=== PATIENT | male | born 1955 | race Caucasian/White ===

== ENCOUNTER 2023-02-12 18:00 | Observation (INO) ==
[2023-02-12] MEDS ORDERED: SODIUM CHLORIDE 0.9% 500 ML IV STA (18:08)
[2023-02-12] MEDS ORDERED: SODIUM CHLORIDE 0.9% 1000ML 1,000 ML IV STA (18:08)
[2023-02-12] MEDS ORDERED: ONDANSETRON INJ 2 MG/ML 2 ML VIAL IV STA (18:32)
[2023-02-12] MEDS ORDERED: HYDROmorphone INJ 0.5 MG/0.5 ML SYR IV PRN (18:32)
--- NOTE | 2023-02-12 18:44 | Emergency Department Note ---
Impression & Plan Nausea & vomiting, Abdominal pain, acute, right upper quadrant, Acute UTI (urinary tract infection) ED Provider Note INFORMANT: Patient ED PROVIDER(S): Kirill Paris MD CHIEF COMPLAINT: Nausea and vomiting PLAN: Disposition: Admitted Condition: Good Outpatient prescription management: none Referral: None MEDICAL DECISION MAKING: Patient presented because of nausea and vomiting. He also noted exacerbation of his left lower back pain. I did obtain records from his visit to [facility]. Patient's MR showed postsurgical changes and expected findings without evidence of discitis or osteomyelitis. Patient had a leukocytosis on their labs and there. He did receive Dilaudid and Zofran. Patient was reevaluated here and he was found to be dehydrated on his chemistry panel. Patient's urinalysis was concerning for infection. Patient received Dilaudid a nd Zofran. He was also hydrated with normal saline. On reassessment he was feeling better. Patient's CT imaging did not reveal any acute intra-abdominal findings except that his bladder appeared consistent with cystitis. This would fit with his urinalysis. Patient was given a dose of IV Rocephin. This could explain the patient's leukocytosis in addition to his vomiting. I discussed admission for further management with the patient and he was in agreement. Consultation was made with Dr. Pop Winters, [facility] hospitalist service. Patient was evaluated in ER admitted for further management Discussed with manager secondary After review of the information above and other included data, I feel the patient requires admission. Triage Nursing notes reviewed and agree them. Vital Signs: reviewed and remarkable for no significant abnormalities Prior /Outside records reviewed: Visit records from last ER visit to outside facility [facility] reviewed Differential diagnosis: Etiologies such as gastroenteritis, food borne illness, infections, ap pendicitis, diverticulitis, inflammatory bowel disease, GI bleed, biliary pathology, exacerbation of chronic low back pain, herniated disc, musculoskeletal, as well as others were entertained. Diagnostics, as interpreted by me: ECG: Twelve-lead ECG normal sinus rhythm at 74 bpm. No Q waves present. No ST elevation. Cardiac Monitoring: Cardiac monitoring ordered by me: The patient was placed on continuous cardiac monitoring and observed. It revealed a normal sinus rhythm at 68 beats per minute without ectopy or evidence of dysrhythmia. Medical decision rules: none Imaging studies: CT scan as noted above. Cystitis. I refer you to the EMR for further details. HPI: The patient is a 68year old male who presents to the Emergency Room with complaints of nausea and vomiting. This started this week and is worsening today.. The patient also notes the following associated symptoms, left low back pain and pain radiating into the left leg, right shoulder pain. Patient also notes right upper quadrant abdominal pain. Patient has a history of lumbar back surgery done at [facility]. He notes his pain in the left hip is similar to his sciatica back pain. Patient notes prior cholecystectomy. He was at [facility] last night and had testing done. He states he had blood work and MRI. The blood work did reveal a leukocytosis of 15.6. Patient was treated with Dilaudid and Zofran. He was discharged with a diagnosis of chronic back pain. Patient is unsure of MRI results. Notes no imaging of his abdomen. The patient has found no relieving factors. Current pain is rated as 10/10. Pt denies LOC, headache, fevers, chills, diaphoresis, visual changes, neck pain, chest pain, breathing difficulties, melena, hematochezia, urinary symptoms, no bowel or bladder dysfunction, numbness, weakness, lymphadenopathy, rash, or other complaints. PAST MEDICAL HISTORY: See Below, chronic low back pain PAST SURGICAL HISTORY: See Below, cholecystectomy, lumbar fusion SOCIAL HISTORY: See Below, smoker HOME MEDICATIONS: See Below ALLERGIES: See Below VITALS: See Below PHYSICAL EXAMINATION: GENERAL: Awake, alert, uncomfortable-appearing, in moderate distress HENT: Normocephalic, atraumatic. Oropharynx unremarkable. EYES: Normal conjunctiva. Sclera non-icteric. NECK: Inspection normal. Non-tender. Supple. No nuchal rigidity. FROM. No masses. RESPIRATORY: Clear to auscultation. No wheezes. No rales. Normal respiratory effort. CARDIAC: Normal rate. Normal rhythm. No murmurs. No rubs. Extremities warm and well perfused. Pulses equal. No JVD. GI: Soft, non-distended. Right upper quadrant tenderness to palpation. No rebound or guarding. No masses. RECTAL: Deferred. MUSCULOSKELETAL: Atraumatic. Chest examination reveals no tenderness. The back is symmetrical on inspection without obvious abnormality. There is no CVA tenderness to palpation. Tenderness in the left lumbar region left sciatic notch. No joint edema. LOWER EXTREMITIES: Calves are equal size bilaterally and non-tender. No edema. No discoloration. NEURO: Normal sensorium. No sensory or motor deficits noted. SKIN: No rash or jaundice noted. Past Med/Surg History Social History Smoking Status: Current every day smoker Tobacco Type: Cigarettes Feels Safe at Home: Yes Allergies Allergies Allergy/AdvReac Type Severity Reaction Status Date / Time ragweed pollen Allergy Mild Congested Verified 02/12/23 22:07 Home Meds Home Medications Medication Instructions Recorded Confirmed aspirin 325 mg tablet 325 mg PO Q6H PRN Pain 02/12/23 02/12/23 glimepiride 2 mg tablet 2 mg PO DAILY 02/12/23 02/12/23 semaglutide 2 mg/dose (8 mg/3 mL) 1 mg subcut WK 02/12/23 02/12/23 subcutaneous pen injector (Ozempic) Results & Data (ED) Vital Signs Vital Signs - 24 hr 02/12/23 18:09 02/12/23 18:44 02/12/23 18:44 Temperature 36.7 C Temperature Source Oral Pulse Rate 79 76 Pulse Rate [Right Finger] 82 Pulse Rhythm Regular Respiratory Rate 19 20 20 Respiratory Effort / Characteristics Non-Labored Spontaneous Non-Labored Respiratory Depth Normal Normal Respiratory Pattern Regular Blood Pressure 176/84 H Blood Pressure [Right Arm] 176/84 H Blood Pressure Mean 114 Blood Pressure Mean [Right Arm] 114 Pulse Oximetry 98 95 95 Oxygen Delivery Method Room Air Room Air Room Air Sepsis Recent Fever Within 48 Hours No Sepsis New/Unexplained Change in Mental Status N/A Sepsis Action Taken by Nursing No Action Required Laboratory Data 02/12/23 18:21 02/12/23 18:21 Lab Results 02/12/23 02/12/23 02/12/23 Range/Units 18:21 18:21 18:21 WBC 14.82 H (4.8-10.8) K/ul RBC 6.26 H (4.70-6.10) M/uL Hgb 19.1 H (14.0-18.0) g/dl Hct 53.5 H (42.0-52.0) % MCV 85.5 (80.0-100.0) fL MCH 30.5 (25.0-34.0) pg MCHC 35.7 (32.0-36.0) g/dL RDW Std Deviation 41.3 (36.4-46.3) fL RDW Coeff of Arturo 13.2 (11.5-14.5) % Plt Count 204 (130-400) K/uL MPV 11.4 (9.4-12.4) fL Immature Gran % (Auto) 0.4 % Neut % (Auto) 82.7 % Lymph % (Auto) 8.3 % Schuyler % (Auto) 8.1 % Eos % (Auto) 0.3 % Baso % (Auto) 0.2 % Neut # (Auto) 12.26 H (1.40-6.50) K/uL Lymph # (Auto) 1.23 (1.2-3.4) K/uL Schuyler # (Auto) 1.20 H (0.11-0.59) K/uL Eos # (Auto) 0.04 (0-0.50) K/uL Baso # (Auto) 0.03 (0-0.2) K/uL Immature Gran # (Auto) 0.06 (0.01-0.20) K/uL Sodium 136 (136-145) mmol/L Potassium 4.2 (3.5-5.1) mmol/L Chloride 100 (98-107) mmol/L Carbon Dioxide 27 (21-32) mmol/L Anion Gap 9 (3-11) BUN 29 H (6-23) mg/dl Creatinine 0.92 (0.6-1.4) mg/dl Est Cr Clr Drug Dosing 67.4 ml/min Est GFR ( Amer) 97.3 ml/min Est GFR (Non-Af Amer) 84.0 ml/min BUN/Creatinine Ratio 31.5 H (10-20) Glucose 245 H (70-99(Fasting)) mg/dl Calcium 10.2 (8.6-10.3) mg/dl Magnesium 2.1 (1.7-2.4) mg/dl Total Bilirubin 1.3 H (0.2-1.0) mg/dl AST 21 (13-39) U/L ALT 13 (7-52) U/L Alkaline Phosphatase 72 (34-104) U/L Troponin I High Sens 17.2 (0-20) pg/ml Total Protein 7.7 (6.0-8.3) gm/dl Albumin 4.6 (3.4-5.0) gm/dl Globulin 3.1 (2.5-4.0) gm/dl Albumin/Globulin Ratio 1.5 (0.9-2) Lipase 15 (11-82) U/L Urine Color Urine Appearance (Clear) Urine pH (4.5-7.5) Ur Specific Clarence (1.000-1.030) Urine Protein (Negative) Urine Glucose (UA) (Negative) Urine Ketones (Negative) Urine Blood (Negative) Urine Nitrite (Negative) Urine Bilirubin (Negative) Urine Urobilinogen (Negative) Ur Leukocyte Esterase (Negative) Urine WBC (Auto) (0-5) /hpf Urine RBC (Auto) (0-4) /hpf U Hyaline Cast (Auto) (0-5) /lpf U Epithel Cells (Auto) (0-5) /lpf Urine Bacteria (Auto) (Negative) SARS-CoV-2, RNA, NAAT NEGATIVE (NEGATIVE) 02/12/23 Range/Units 19:42 WBC (4.8-10.8) K/ul RBC (4.70-6.10) M/uL Hgb (14.0-18.0) g/dl Hct (42.0-52.0) % MCV (80.0-100.0) fL MCH (25.0-34.0) pg MCHC (32.0-36.0) g/dL RDW Std Deviation (36.4-46.3) fL RDW Coeff of Arturo (11.5-14.5) % Plt Count (130-400) K/uL MPV (9.4-12.4) fL Immature Gran % (Auto) % Neut % (Auto) % Lymph % (Auto) % Schuyler % (Auto) % Eos % (Auto) % Baso % (Auto) % Neut # (Auto) (1.40-6.50) K/uL Lymph # (Auto) (1.2-3.4) K/uL Schuyler # (Auto) (0.11-0.59) K/uL Eos # (Auto) (0-0.50) K/uL Baso # (Auto) (0-0.2) K/uL Immature Gran # (Auto) (0.01-0.20) K/uL Sodium (136-145) mmol/L Potassium (3.5-5.1) mmol/L Chloride (98-107) mmol/L Carbon Dioxide (21-32) mmol/L Anion Gap (3-11) BUN (6-23) mg/dl Creatinine (0.6-1.4) mg/dl Est Cr Clr Drug Dosing ml/min Est GFR ( Amer) ml/min Est GFR (Non-Af Amer) ml/min BUN/Creatinine Ratio (10-20) Glucose (70-99(Fasting)) mg/dl Calcium (8.6-10.3) mg/dl Magnesium (1.7-2.4) mg/dl Total Bilirubin (0.2-1.0) mg/dl AST (13-39) U/L ALT (7-52) U/L Alkaline Phosphatase (34-104) U/L Troponin I High Sens (0-20) pg/ml Total Protein (6.0-8.3) gm/dl Albumin (3.4-5.0) gm/dl Globulin (2.5-4.0) gm/dl Albumin/Globulin Ratio (0.9-2) Lipase (11-82) U/L Urine Color Yellow Urine Appearance Cloudy A (Clear) Urine pH 5.5 (4.5-7.5) Ur Specific Clarence > 1.045 H (1.000-1.030) Urine Protein 3+ H (Negative) Urine Glucose (UA) 3+ H (Negative) Urine Ketones 2+ H (Negative) Urine Blood 2+ H (Negative) Urine Nitrite Positive A (Negative) Urine Bilirubin Negative (Negative) Urine Urobilinogen Negative (Negative) Ur Leukocyte Esterase Trace H (Negative) Urine WBC (Auto) >30 H (0-5) /hpf Urine RBC (Auto) 0-4 (0-4) /hpf U Hyaline Cast (Auto) 10-30 H (0-5) /lpf U Epithel Cells (Auto) 0-5 (0-5) /lpf Urine Bacteria (Auto) 1+ H (Negative) SARS-CoV-2, RNA, NAAT (NEGATIVE) Administered Medications Sodium Chloride (Nss 1000ml) 1,000 mls @ 75 mls/hr IV .[id number] STA Stop: 02/13/23 07:27 Last Infusion: 02/13/23 01:39 Dose: 75 mls/hr Documented By: Admin: 02/12/23 18:25 Dose: 125 mls/hr Documented By: FABIANO Insulin Aspart (Insulin Aspart Per Unit Charge) 0 units SC ACHS NIC Stop: 03/14/23 21:50 Last Admin: 02/12/23 22:16 Dose: 2 units Documented By: CELESTINO Co-signed By: JOHN Insulin Glargine (Lantus Per Unit Charge) 5 units SQ BID NIC Stop: 03/14/23 21:50 Last Admin: 02/12/23 22:15 Dose: 5 units Documented By: CELESTINO Co-signed By: JOHN Discontinued Medications Hydromorphone HCl (Hydromorphone Inj 0.5 Mg/0.5 Ml Syr) 0.5 mg IV Q15M PRN PRN Reason: Pain Stop: 02/26/23 18:31 Last Admin: 02/12/23 20:15 Dose: 0.5 mg Documented By: CHRIS Hydromorphone HCl (Hydromorphone Inj 0.5 Mg/0.5 Ml Syr) 0.5 mg IV NOW STA Stop: 02/12/23 20:44 Last Admin: 02/12/23 21:19 Dose: 0.5 mg Documented By: CHRIS Sodium Chloride (Nss) 500 mls @ 999 mls/hr IV .Q31M STA Stop: 02/12/23 18:38 Last Infusion: 02/12/23 18:54 Dose: 0 mls/hr Documented By: Admin: 02/12/23 18:25 Dose: 999 mls/hr Documented By: FABIANO Sodium Chloride (Nss 1000ml) 1,000 mls @ 999 mls/hr IV .Q1H1M ONE Stop: 02/12/23 20:37 Last Infusion: 02/12/23 21:36 Dose: 0 mls/hr Documented By: Admin: 02/12/23 20:16 Dose: 999 mls/hr Documented By: CHRIS Ceftriaxone Sodium (Rocephin) 2,000 mg in 70 mls @ 140 mls/hr IV NOW STA Stop: 02/12/23 20:35 Last Infusion: 02/12/23 21:36 Dose: 0 mls/hr Documented By: Admin: 02/12/23 20:15 Dose: 140 mls/hr Documented By: CHRIS Cefepime HCl (Maxipime) 2,000 mg in 20 mls @ 5 mls/min IV NOW STA; Protocol Stop: 02/12/23 20:37 Last Admin: 02/12/23 21:19 Dose: 5 mls/min Documented By: CHRIS Promethazine HCl (Phenergan) 6.25 mg in 50.25 mls @ 201 mls/hr IV NOW STA Stop: 02/12/23 21:51 Last Infusion: 02/12/23 22:41 Dose: 0 mls/hr Documented By: Admin: 02/12/23 21:56 Dose: 201 mls/hr Documented By: CELESTINO Ioversol (Optiray 320 100ml) 81 ml IV ONCE ONE Stop: 02/12/23 19:19 Last Admin: 02/12/23 19:18 Dose: 81 ml Documented By: RADHA Ondansetron HCl (Ondansetron Inj 2 Mg/Ml 2 Ml Vial) 4 mg IV NOW STA Stop: 02/12/23 18:33 Last Admin: 02/12/23 20:16 Dose: 4 mg Documented By: CHRIS Imaging Data Radiologist's Impression: Abdomen/Pelvis CT 02/12/23 18:32 CT abd pelvis IV con only CLINICAL HISTORY: RUQ abd pain TECHNIQUE: Helical axial images of the abdomen and pelvis were obtained and displayed. Automated dose lowering techniques and/or adjustment according to patient size were utilized for this exam. This exam was performed with intravenous contrast. CT DOSE: 950.68 mGy.cm COMPARISON: None available at the time of this dictation. FINDINGS: Lower chest: No acute abnormality. Liver: Unremarkable. No focal lesions are seen. Gallbladder and biliary tree: Patient is status post cholecystectomy. No intra- or extrahepatic biliary ductal dilation. Pancreas: Unremarkable, no focal lesions. Spleen: Unremarkable. Adrenals: Unremarkable. Kidneys and ureters: Subcentimeter hypodensities are too small to characterize. Mild bilateral perinephric stranding is seen. Bladder: Diffuse homogeneous wall thickening is seen. Reproductive organs: Unremarkable. Bowel: The appendix is normal. A hiatal hernia is seen. Lymph nodes Retroperitoneal: Unremarkable. Pelvic: Unremarkable. Mesenteric: Unremarkable. Peritoneum: Normal. Vessels: Atherosclerotic calcifications are seen. Abdominal wall: Left fat containing inguinal hernia. Bones: Degenerative changes in the visualized spine. Posterior fixation hardware is seen. IMPRESSION: Diffuse thickening of the bladder wall is nonspecific, however correlation with urinalysis is recommended to exclude UTI. Otherwise no acute abnormalities are seen, in particular no evidence of ACT 112: Negative or not required by law. Electronically signed by: Daniel Lane M.D. 02/12/2023 7:30 PM Discharge Plan Visit Data Chief Complaint: Referred by Doctor Stated Complaint: REF BY DOC,VOMIT,DIARREAH,DEHYDRATED,BLOOD CELL ED Provider: Kirill Paris Discharge Problem: Nausea & vomiting, Abdominal pain, acute, right upper quadrant, Acute UTI (urinary tract infection) Patient Disposition: Admitted As Inpatient Discharge Instructions Interventions: ED Discharge Assessment Last Done: 02/12/23 21:46
[2023-02-12 18:46] LABS: Basophils # (auto) 0.03 K/uL (0-0.2); Basophils % (auto) 0.2 %; Eosinophils # (auto) 0.04 K/uL (0-0.50); Eosinophils % (auto) 0.3 %; Hematocrit (blood only) 53.5 % (42.0-52.0); Hemoglobin 19.1 g/dl (14.0-18.0); Immature Granulocytes # (auto) 0.06 K/uL (0.01-0.20); Immature Granulocytes % (auto) 0.4 %; Lymphocytes # (auto) 1.23 K/uL (1.2-3.4); Lymphocytes % (auto) 8.3 %; Mean Corpuscular Hemoglobin 30.5 pg (25.0-34.0); Mean Corpuscular Hgb Conc 35.7 g/dL (32.0-36.0); Mean Corpuscular Volume 85.5 fL (80.0-100.0); Mean Platelet Volume 11.4 fL (9.4-12.4); Monocytes % (auto) 8.1 %; Neutrophils # (auto) 12.26 K/uL (1.40-6.50); Neutrophils % (auto) 82.7 %; Platelet Count 204 K/uL (130-400); RDW Coefficient of Variation 13.2 % (11.5-14.5); RDW Standard Deviation 41.3 fL (36.4-46.3); Red Blood Count 6.26 M/uL (4.70-6.10); White Blood Count 14.82 K/ul (4.8-10.8)
[2023-02-12 18:54] LABS: Albumin Globulin Ratio 1.5 (0.9-2); Albumin Level 4.6 gm/dl (3.4-5.0); BUN Creatinine Ratio 31.5 (10-20); Bilirubin,Total 1.3 mg/dl (0.2-1.0); Calcium 10.2 mg/dl (8.6-10.3); Creatinine Clr Calc Pharmacy 67.4 ml/min; Est GFR (African American) 97.3 ml/min; Globulin 3.1 gm/dl (2.5-4.0); Potassium 4.2 mmol/L (3.5-5.1); Total Protein 7.7 gm/dl (6.0-8.3)
[2023-02-12] MEDS ORDERED: OPTIRAY 320 100ml IV ONE (19:18)
--- NOTE | 2023-02-12 19:30 | CT Scan Report ---
CT abd pelvis IV con only CLINICAL HISTORY: RUQ abd pain TECHNIQUE: Helical axial images of the abdomen and pelvis were obtained and displayed. Automated dose lowering techniques and/or adjustment according to patient size were utilized for this exam. This e xam was performed with intravenous contrast. CT DOSE: 950.68 mGy.cm COMPARISON: None available at the time of this dictation. FINDINGS: Lower chest: No acute abnormality. Liver: Unremarkable. No focal lesions are seen. Gallbladder and biliary tree: Patient is status post cholecystectomy. No intra- or extrahepatic bilia ry ductal dilation. Pancreas: Unremarkable, no focal lesions. Spleen: Unremarkable. Adrenals: Unremarkable. Kidneys and ureters: Subcentimeter hypodensities are too small to characterize. Mild bilateral perine phric stranding is seen. Bladder: Diffuse homogeneous wall thickening is seen. Reproductive organs: Unremarkable. Bowel: The appendix is normal. A hiatal hernia is seen. Lymph nodes Retroperitoneal: Unremarkable. Pelvic: Unremarkable. Mesenteric: Unremarkable. Peritoneum: Normal. Vessels: Atherosclerotic calcifications are seen. Abdominal wall: Left fat containing inguinal hernia. Bones: Degenerative changes in the visualized spine. Posterior fixation hardware is seen. IMPRESSION: Diffuse thickening of the bladder wall is nonspecific, however correlation with urinalysis is recomme nded to exclude UTI. Otherwise no acute abnormalities are seen, in particular no evidence of ACT 112: Negative or not required by law. Electronically signed by: Daniel Lane M.D. 02/12/2023 7:30 PM
[2023-02-12] MEDS ORDERED: SODIUM CHLORIDE 0.9% 1000ML 1,000 ML IV ONE (19:37)
[2023-02-12 20:02] LABS: Appearance Urine Cloudy (Clear); Bacteria Urine Automated 1+ (Negative); Bilirubin Urine Negative (Negative); Blood Urine 2+ (Negative); Color Urine Yellow; Epithelial Cell Urine Auto 0-5 /lpf (0-5); Glucose Urine UA 3+ (Negative); Ketones Urine 2+ (Negative); Leukocyte Esterase Urine Trace (Negative); Nitrite Urine Positive (Negative); Protein Urine 3+ (Negative); RBC Urine Automated 0-4 /hpf (0-4); Specific Gravity Urine > 1.045 (1.000-1.030); Urobilinogen Urine Negative (Negative); WBC Urine Automated >30 /hpf (0-5); pH Urine 5.5 (4.5-7.5)
[2023-02-12] MEDS ORDERED: cefTRIAXone SODIUM 2,000 MG/70 ML BAG IV STA (20:06)
[2023-02-12 20:28] LABS: Troponin I High Sensitivity 17.2 pg/ml (0-20)
[2023-02-12] MEDS ORDERED: CEFEPIME 2,000 MG/20 ML VIAL IV STA (20:34)
[2023-02-12] MEDS ORDERED: HYDROmorphone INJ 0.5 MG/0.5 ML SYR IV STA (20:43)
[2023-02-12 20:48] LABS: Magnesium 2.1 mg/dl (1.7-2.4)
[2023-02-12] MEDS ORDERED: PROMETHAZINE 6.25 MG/50.25 ML BAG IV STA (21:37)
[2023-02-12] MEDS ORDERED: PROMETHAZINE HCL 6.25 MG in SODIUM CHLORIDE 0.9% 50 ML IV PRN (21:37)
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
[2023-02-12] MEDS ORDERED: MoRPHine SULFATE 2 MG/ML CARP IV PRN (21:42)
[2023-02-12] MEDS ORDERED: LORazepam 0.5 MG TAB PO PRN (21:42)
[2023-02-12] MEDS ORDERED: CARBOHYDRATES FOR HYPOGLYCEMIA PO PRN (21:51)
[2023-02-12] MEDS ORDERED: DEXTROSE 50% 50 ML SYRINGE IV PRN (21:51)
[2023-02-12] MEDS ORDERED: GLUCOSE 10 TAB/TUBE PO PRN (21:51)
[2023-02-12] MEDS ORDERED: GLUCAGON FOR INJ 1 MG VIAL SQ PRN (21:51)
[2023-02-12] MEDS ORDERED: GLUCOSE 40% GEL 15 GM TUBE PO PRN (21:51)
[2023-02-12] MEDS: LANTUS PER UNIT CHARGE SQ SCH (22:15)
[2023-02-12] MEDS: INSULIN ASPART PER UNIT CHARGE SC SCH (22:16)
[2023-02-13] MEDS: oxyCODONE HCL IR 5 MG TAB (IMMEDIATE RELEASE) PO PRN ×4 (04:26→16:29)
[2023-02-13] MEDS ORDERED: cloNIDine HCL 0.1 MG TAB PO ONE (05:54)
[2023-02-13] MEDS: CEFEPIME 2,000 MG in SYRINGE 0 ML IV SCH ×2 (06:20→14:40)
--- NOTE | 2023-02-13 07:40 | XRay Report ---
SINGLE VIEW CHEST CLINICAL HISTORY: Hypertension FINDINGS: 2 AP, portable, supine chest radiographs are obtained. No prior studies are available for c omparison at the time of dictation. The examination is degraded by portable technique and apical lord otic positioning. The cardiomediastinal silhouette is unremarkable. The lungs and pleural spaces are clear. No pneumothorax is seen. The skeletal structures are osteopenic. The bony thorax is grossly in tact. Cholecystectomy clips are noted in the right upper quadrant. IMPRESSION: No active disease in the chest. ACT 112: Negative or not required by law. Electronically signed by: Sixto Eugene M.D. 02/13/2023 7:39 AM
[2023-02-13] MEDS: ACETAMINOPHEN 325 MG TAB PO PRN ×2 (08:00→16:29)
[2023-02-13] MEDS: INSULIN ASPART PER UNIT CHARGE SC SCH ×3 (08:04→16:59)
[2023-02-13] MEDS: LANTUS PER UNIT CHARGE SQ SCH (08:04)
[2023-02-13 08:26] LABS: Estimated Average Glucose 194 mg/dl; Hemoglobin A1C 8.4 % (4.5-5.6)
--- NOTE | 2023-02-13 08:39 | Electrocardiogram Report ---
Test Reason : Blood Pressure : / mmHG Vent. Rate : 074 BPM Atrial Rate : 074 BPM P-R Int : 164 ms QRS Dur : 076 ms QT Int : 396 ms P-R-T Axes : -04 021 029 degrees QTc Int : 439 ms Normal sinus rhythm Poor R wave progression, consider anterior AK vs. lead placement vs. LVH Abnormal ECG When compared with ECG of 03-FEB-2021 10:09, NE interval has decreased Confirmed by Song Lester ([id number]) on 02/13/2023 8:38:47 AM Referred By: REFERRED SELF Confirmed By:Ever eLster
[2023-02-13 08:46] LABS: Basophils # (auto) 0.02 K/uL (0-0.2); Basophils % (auto) 0.2 %; Eosinophils # (auto) 0.01 K/uL (0-0.50); Eosinophils % (auto) 0.1 %; Hematocrit (blood only) 47.1 % (42.0-52.0); Hemoglobin 16.1 g/dl (14.0-18.0); Immature Granulocytes # (auto) 0.06 K/uL (0.01-0.20); Immature Granulocytes % (auto) 0.5 %; Lymphocytes % (auto) 15.6 %; Mean Corpuscular Hemoglobin 30.1 pg (25.0-34.0); Mean Corpuscular Hgb Conc 34.2 g/dL (32.0-36.0); Mean Platelet Volume 11.2 fL (9.4-12.4); Monocytes # (auto) 1.19 K/uL (0.11-0.59); Monocytes % (auto) 9.3 %; Neutrophils # (auto) 9.57 K/uL (1.40-6.50); Neutrophils % (auto) 74.3 %; Platelet Count 164 K/uL (130-400); RDW Coefficient of Variation 13.5 % (11.5-14.5); RDW Standard Deviation 43.3 fL (36.4-46.3); Red Blood Count 5.35 M/uL (4.70-6.10); White Blood Count 12.85 K/ul (4.8-10.8)
[2023-02-13] MEDS ORDERED: ENOXAPARIN INJ 40 MG/0.4 ML SYR SQ SCH (09:00)
[2023-02-13 09:06] LABS: BUN Creatinine Ratio 29.8 (10-20); Calcium 8.9 mg/dl (8.6-10.3); Creatinine Clr Calc Pharmacy 73.8 ml/min; Est GFR (African American) 102.8 ml/min; Est GFR (Non-African American) 88.7 ml/min; Potassium 3.8 mmol/L (3.5-5.1)
--- NOTE | 2023-02-13 12:42 | Hospitalist Progress Note ---
Date of Service February 13, 2023 Assessment & Plan (1) Complicated UTI (urinary tract infection): Plan: No overt sepsis for now Urine culture is growing gram-negative bacilli further identification is pending He refused to stay any longer and wants to leave the hospital around 6 or 7 in the evening He did not want to see any of the [facility] physicians and he refused to be transferred to other group He wanted to have antibiotic and the pain medications to go He will get out of the hospital AGAINST MEDICAL ADVICE Other medical conditions are as follow: Hypertensive urgency secondary to discomfort Stable and continue current medications DM 2 on oral medications, last outpatient hemoglobin A1c 8 as per patient Basal bolus insulin, ISS BG goal 1 10-1 40, carb count coverage, update hemoglobin A1c Bladder cancer status post surgery Chronic back pain status post surgery Past tobacco abuse DVT prophylaxis per Lovenox subcu Full code Strongly advised to stay in the hospital He will be given antibiotic and pain medications for a few days even if he deci obdulia to sign out AMA Admission and Anticipated Discharge Date Admission Date: February 12, 2023 Subjective 02/13/2023 The patient was seen and examined in medical telemetry unit He has been in pain in the lower abdomen and does not want to say any [facility] physician and does not want to be in any [facility] Hospital He just wanted to have pain medications and antibiotics to go He did not want to listen his medical condition and that can get worse without proper identification and giving antibiotic correctly We will sign out AMA this evening Review of Systems Review of Systems: All systems reviewed and are unremarkable as mentioned below Physical Exam Physical Exam: The patient was not examined Results & Data Results & Data Vital Signs (Past 12 Hours) Vital Signs Temp Pulse Pulse Resp BP BP BP 02/13/23 11:00 36.7 C 67 18 136/67 02/13/23 08:00 64 02/13/23 07:33 36.7 C 85 18 98/51 L 02/13/23 05:00 73 02/13/23 04:00 36.8 C 75 18 171/78 H 02/13/23 03:01 65 16 120/53 L 02/13/23 01:40 68 21 02/13/23 01:30 67 25 H 02/13/23 01:20 65 14 02/13/23 01:10 68 13 02/13/23 01:00 71 20 124/72 02/13/23 00:50 67 24 02/13/23 00:40 66 20 02/13/23 01:47 Pulse Ox O2 Del Method 02/13/23 11:00 96 Room Air 02/13/23 08:00 02/13/23 07:33 93 Room Air 02/13/23 05:00 02/13/23 04:00 95 Room Air 02/13/23 03:01 97 Room Air 02/13/23 01:40 02/13/23 01:30 02/13/23 01:20 02/13/23 01:10 02/13/23 01:00 02/13/23 00:50 02/13/23 00:40 95 02/13/23 01:47 Room Air Laboratory Results Short CBC 02/12/23 02/13/23 Range/Units 18:21 08:17 WBC 14.82 H 12.85 H (4.8-10.8) K/ul Hgb 19.1 H 16.1 D (14.0-18.0) g/dl Hct 53.5 H 47.1 (42.0-52.0) % Plt Count 204 164 (130-400) K/uL BMP 02/12/23 02/13/23 18:21 08:17 Sodium 136 139 Potassium 4.2 3.8 Chloride 100 107 Carbon Dioxide 27 27 BUN 29 H 25 H Creatinine 0.92 0.84 Glucose 245 H 144 H Calcium 10.2 8.9 Liver Function 02/12/23 Range/Units 18:21 Total Bilirubin 1.3 H (0.2-1.0) mg/dl AST 21 (13-39) U/L ALT 13 (7-52) U/L Alkaline Phosphatase 72 (34-104) U/L Albumin 4.6 (3.4-5.0) gm/dl Urine 02/12/23 Range/Units 19:42 Urine Color Yellow Urine Appearance Cloudy A (Clear) Urine pH 5.5 (4.5-7.5) Ur Specific [place] > 1.045 H (1.000-1.030) Urine Protein 3+ H (Negative) Urine Glucose (UA) 3+ H (Negative) Medications Administered Current Inpatient Medications Acetaminophen (Acetaminophen 325 Mg Tab) 650 mg PO Q6H PRN PRN Reason: Fever/pain Stop: 03/14/23 20:40 Last Admin: 02/13/23 08:00 Dose: 650 mg Dextrose (Dextrose 50% 50 Ml Syringe) 25 - 50 ml IV UD PRN; Protocol PRN Reason: Hypoglycemia Protocol Stop: 03/14/23 21:50 Enoxaparin Sodium (Enoxaparin Inj 40 Mg/0.4 Ml Syr) 40 mg SQ QAM [facility] Stop: 03/15/23 08:59 Last Admin: 02/13/23 08:04 Dose: Not Given Glucagon (Glucagon For Inj 1 Mg Vial) 1 mg SQ UD PRN; Protocol PRN Reason: Hypoglycemia Protocol Stop: 03/14/23 21:50 Glucose (Glucose 10 Tab/Tube) 4 - 8 tab PO UD PRN; Protocol PRN Reason: Hypoglycemia Treatment Stop: 03/14/23 21:50 Glucose (Glucose 40% Gel 15 Gm Tube) 15 - 30 gm PO UD PRN; Protocol PRN Reason: Hypoglycemia Protocol Stop: 03/14/23 21:50 Promethazine HCl 6.25 mg/ (Sodium Chloride) 50.25 mls @ 201 mls/hr IV Q6H PRN PRN Reason: Nausea And Vomiting Stop: 03/14/23 21:36 Cefepime HCl 2,000 mg/ Syringe 20 mls @ 5 mls/min IV Q8H NIC; Protocol Stop: 02/23/23 05:59 Last Admin: 02/13/23 06:20 Dose: 5 mls/min Insulin Aspart (Insulin Aspart Per Unit Charge) 0 units SC ACHS [facility] Stop: 03/14/23 21:50 Last Admin: 02/13/23 12:22 Dose: Not Given Insulin Glargine (Lantus Per Unit Charge) 5 units SQ BID [facility] Stop: 03/14/23 21:50 Last Admin: 02/13/23 08:04 Dose: Not Given Lorazepam (Lorazepam 0.5 Mg Tab) 0.25 mg PO TID PRN PRN Reason: Anxiety Stop: 03/14/23 21:41 Miscellaneous (Carbohydrates For Hypoglycemia ) 15 - 30 gm PO UD PRN PRN Reason: Hypoglycemia Protocol Stop: 03/14/23 21:50 Morphine Sulfate (Morphine Sulfate 2 Mg/Ml Carp) 2 mg IV Q6H PRN PRN Reason: Pain Stop: 02/26/23 21:41 Oxycodone HCl (Oxycodone Hcl Ir 5 Mg Tab (Immediate Release)) 5 mg PO Q4H PRN PRN Reason: Pain Stop: 02/26/23 20:40 Last Admin: 02/13/23 12:22 Dose: 5 mg
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
== END 2023-02-13 19:18 | disposition home or self-care (01) ==
LOC: ED 18:00 → EDINP 18:00 → 2N 02-13 04:12